=== PATIENT | female | born 1980 | race Caucasian/White ===

== ENCOUNTER 2016-09-19 12:54 | Outpatient (CLI) | payer OTHER | END 2016-09-19 12:55 | disposition home or self-care (01) | LOC: NC 12:54 | PROVIDERS: ATTEND Obstetrics & Gynecology | DX: O24.410 Gestational diabetes mellitus in pregnancy, diet controlled (principal); Z71.3 Dietary counseling and surveillance ==

== ENCOUNTER 2016-10-30 11:49 | Inpatient (IN) | payer OTHER ==
[2016-10-30 12:17] VITALS: BMI 38.7
[2016-10-30] MEDS ORDERED: CEFAZOLIN SODIUM 2 GRAM DUPLEX 2 G in Premix (D5W) 50 ml 1 EACH IV PRN (12:25)
[2016-10-30] MEDS ORDERED: IV START KIT ONE (12:37)
[2016-10-30 13:39] LABS: ABSOLUTE NEUTROPHIL COUNT 5.9 K/mm3 (1.8-7.7); BASO % 0.5 % (0.2-1.0); EOS % 0.1 % (0.9-2.9); HEMATOCRIT 31.9 % (37.0-47.0); IMM NEUT% 0.4 % (0-1); LYMPH # 1.6 (1.0-4.8); LYMPH % 19.5 % (15-45); MEAN CORPUSCULAR HEMOGLOBIN 25.4 pg (27.0-31.0); MEAN CORPUSCULAR HGB CONC 31.3 g/dl (33.0-37.0); MEAN PLATELET VOLUME 11.7 fl (7.4-10.4); MONO # 0.5 (0.0-0.8); MONO % 5.8 % (4-12); NEUT % 73.7 % (43-75); PLATELET COUNT 288 K/mm3 (130-400); RED CELL DISTRIBUTION WIDTH 15.9 % (11.5-14.5)
[2016-10-30 13:42] LABS: AMPHETAMINES/METHAMPHETAMINES NEGATIVE (NEGATIVE); COCAINE NEGATIVE (NEGATIVE); MARIJUANA NEGATIVE (NEGATIVE); METHADONE NEGATIVE (NEGATIVE); OPIATES NEGATIVE (NEGATIVE); TRICYCLIC ANTIDEPRESSANTS NEGATIVE (NEGATIVE)
[2016-10-30 13:50] LABS: ALB/GLOB RATIO 0.9 (>1.0); CALCIUM 8.8 mg/dL (8.6-10.3); URIC ACID 5.6 mg/dL (2.3-7.6)
[2016-10-30 13:53] LABS: CREATININE,RANDOM URINE 43 mg/dL
--- NOTE | 2016-10-30 16:02 | PDOC1 ---
- HPI 36 year old at 38+2w gestational age by LMP, confirmed with 12-week ultrasound who desires repeat LTCS for means of delivery due to history of prior LTCS and also BTL for permanent sterilization. Pt presents for routine visit today and was noted to have BP 140/80, 148/90, and 3+ protein in the office. Pt also c/o having seeing spots. Pt was initially scheduled for repeat c/s + BTL on 11/06/16. * previous c/s x 3; desires repeat c/s + BTL * h/o SGA - growth u/s this have been adequate growth * GDMa1; well controlled with diet, last hgba1c = 5.7. * Rh-negative, had rhogam at 26w * pos NTD screen (1:275) * desires BTL SOCIAL HISTORY: had pos MJ screen early ; today's screen is negative Allergies/Adverse Reactions: Allergies No Known Allergies Allergy (Verified 10/30/16 11:56) - Labs & Studies LABS: A-NEG ab negative rubella immune RPR-[Negative], HbsAg-[Negative], HIV-[Negative] GC/Chlamydia-[Negative], UA-[Negative], Quad/Integrated Screen-elevated NTD risk 1:275 elevated 1hr and 3hr testing - Hgba1c = 5.7 lefty 11/11/16, c/w 12, 19, and 24w u/s - Physical Exam General: Afebrile, No Acute Distress Psych/Mental Status: Mood/Affect Appropriate Lungs: Clear to Auscultation Bilaterally Cardiovascular: Regular Rate and Rhythm Abdomen: Other (efw 3500g) Genitourinary: Normal Female Genitalia Extremities: Edema (1+ bilaterally) Deep Tendon Reflexes: Bicep (L): 1+ (Slightly diminished), Bicep (R): 1+ ( Slightly diminished), Patellar (L): 1+ (Slightly diminished), Patellar (R): 1+ ( Slightly diminished) - Assessment & Plan 36 y/o at 38+2 by [LMP] who will present for repeat LTCS and BTL due to preeclampsia Discussed with patient the risks of including infection, bleeding , damage to underlying structures including bowel, bladder, uterus, tubes, ovaries , baby, and ureter, as well as will have a scar and can have persistent pain and numbness at incision site. The patient agrees to proceed with LTCS and BTL. Labs are reviewed which show elevated urine p/c ratio at 1279.
[2016-10-30] MEDS: LACTATED RINGERS 1,000 ML IV SCH ×3 (19:10→22:20)
[2016-10-30] MEDS ORDERED: CEFAZOLIN SODIUM 2 GRAM DUPLEX 50 ML IV ONE (19:22)
[2016-10-30] MEDS ORDERED: SPINAL PROCEDURAL TRAY 1 EACH ONE (19:32)
[2016-10-30] MEDS ORDERED: ONDANSETRON 4 MG/2ML 2 ML VIAL ONE (19:33)
[2016-10-30] MEDS ORDERED: OXYTOCIN 10 UNITS/ML VIAL ONE (19:33)
[2016-10-30] MEDS ORDERED: MORPHINE SULFATE (DURAMORPH) 1 MG/ML 10ML AMP ONE (19:34)
[2016-10-30] MEDS ORDERED: EPHEDRINE SULFATE UD SYR 25 MG 25 MG/5 ML SYRINGE IV ONE (20:47)
[2016-10-30] MEDS ORDERED: HYDROMORPHONE HCL 1 MG/ML SYRINGE IV PRN ×2 (20:48→22:04)
[2016-10-30] MEDS ORDERED: DIPHENHYDRAMINE HCL 50 MG/1 ML VIAL IV PRN ×2 (20:48→22:20)
[2016-10-30] MEDS ORDERED: EPHEDRINE SULFATE 50 MG/ML 1ML VIAL IV PRN ×2 (20:48→22:04)
[2016-10-30] MEDS ORDERED: NALOXONE HCL 0.4 MG/ML VIAL IV PRN ×2 (20:48→22:04)
[2016-10-30] MEDS ORDERED: ONDANSETRON 4 MG/2ML 2 ML VIAL IV PRN ×3 (20:48→22:20)
[2016-10-30] MEDS ORDERED: PROMETHAZINE HCL 25 MG/ML VIAL IM PRN ×2 (20:48→22:04)
[2016-10-30] MEDS ORDERED: HYDROMORPHONE HCL 2 MG/ML SYRINGE IV PRN ×2 (20:48→22:04)
[2016-10-30] MEDS ORDERED: BUPIVACAINE 0.75% SPINAL AMPUL 2 ML ONE (21:49)
[2016-10-30] MEDS ORDERED: KETOROLAC TROMETHAMINE 30 MG/ML 1 ML VIAL ONE (21:49)
[2016-10-30] MEDS ORDERED: LACTATED RINGERS 1,000 ML ONE (22:16)
[2016-10-30] MEDS ORDERED: OXYCODONE/ACETAMINOPHEN 5/325 MG TABLET PO PRN (22:20)
[2016-10-30] MEDS ORDERED: LANOLIN 50 APPLIC/7G TUBE TP PRN (22:20)
[2016-10-30] MEDS ORDERED: DIPHENHYDRAMINE HCL 25 MG CAPSULE PO PRN (22:20)
[2016-10-30] MEDS ORDERED: KETOROLAC TROMETHAMINE 30 MG/ML 1 ML VIAL IV PRN (22:20)
[2016-10-30] MEDS: DIPHENHYDRAMINE HCL 50 MG/1 ML VIAL IV PRN (22:49)
[2016-10-31] MEDS ORDERED: MAGNESIUM SULFATE 4 G/100 ML 4 G in PREMIX BAG 1 EACH IV ONE (00:11)
[2016-10-31] MEDS ORDERED: MAGNESIUM SULFATE 4 G/100 ML 100 ML IV ONE (00:21)
[2016-10-31] MEDS ORDERED: PUMP TUBING ONE ×2 (00:24→00:32)
[2016-10-31] MEDS: LACTATED RINGERS 1,000 ML IV SCH ×5 (00:45→20:58)
[2016-10-31] MEDS ORDERED: LACTATED RINGERS 1,000 ML ONE (01:04)
[2016-10-31] MEDS: MAGNESIUM SULFATE 20 G/500 ML 500 ML IV SCH ×3 (01:24→23:06)
[2016-10-31] MEDS: KETOROLAC TROMETHAMINE 30 MG/ML 1 ML VIAL IV SCH ×7 (05:01→18:04)
[2016-10-31] MEDS ORDERED: RHOGAM 300 MCG SYRINGE IV ONE (06:06)
--- NOTE | 2016-10-31 06:24 | OP ---
Dorinda Vail [id number] DATE OF PROCEDURE: 10/30/2016 PREOPERATIVE DIAGNOSES: 1. A 38 week plus 2 day . 2. Previous section times three. 3. Desires repeat section. 4. Desires permanent sterilization. 5. Preeclampsia. POSTOPERATIVE DIAGNOSES: 1. A 38 week plus 2 day . 2. Previous section times three. 3. Desires repeat section. 4. Desires permanent sterilization. 5. Preeclampsia. PROCEDURE: Repeat low transverse section with bilateral tubal ligation. SURGEON: Heriberto Cavazos MD. PHYSICIAN EXECUTIVE: Phu Calero CNM ANESTHESIA: Spinal. ESTIMATED BLOOD LOSS: 600 mL. COMPLICATIONS: None. OPERATIVE FINDINGS: Include a live born baby male with 's of 8 and 10 in cephalic presentation with clear amniotic fluid. Both ovaries and tubes appear normal bilaterally. There was moderate lower segment adhesions. OPERATIVE COURSE: This patient was taken to the operating room and placed under spinal anesthesia. The patient was then prepped and draped in a sterile fashion. Adequate anesthesia was confirmed. A pfannenstiel incision was made and taken down to the level of the fascia. The fascia was incised tranversely dissected bilaterally off of the underlying rectus muscle. The rectus muscle was in the midline and the peritoneal cavity was entered bluntly and stretched. An Jose retractor was then placed and a transverse incision was made on the lower uterine segment and stretched. The baby was then delivered and bulb suctioned. There was nuchal cord x1 which was reduced. After a brief delay the cord was clamped and cut and baby was taken to the warmer for the nursing staff. The placenta was then extracted manually and the uterus was cleared of all clots and membranes. The incision was then closed with a single layer of 0 Vicryl in a continuous fashion and hemostasis was created with a figure of eight suture of 0 Vicryl suture. There was good hemostasis observed. The right tube was then grasped with Roxobel clamp and then a window was made in mesosalpinx. The proximal and distal aspect of the tube was then tied with a 2-0 Silk suture and the middle segment was then excised. The open aspect of the tube was then cauterized. The left tube was then grasped with Ni clamp a window was made in the mesosalpinx. The proximal and distal aspect of the tube was then tied with 2-0 Silk suture and the middle segment was then excised. The open aspect of the tube was then cauterized. There was good hemostasis observed. The rectus muscles were reapproximated with 3-0 Vicryl suture. The fascia was then closed with 0 Vicryl in a continuous fashion from both edges. The subcutaneous space was then closed with 2-0 Chromic suture and the skin was then closed with subcutaneous suture of 3-0 Monocryl. The patient was then recovered from anesthesia and taken to the recovery room in stable condition. JOB: [id number]
[2016-10-31 06:42] LABS: HEMATOCRIT 27.1 % (37.0-47.0); HEMOGLOBIN 8.6 gm/l (12.0-16.0); MEAN CELL VOLUME 79.7 fl (81.0-99.0); MEAN CORPUSCULAR HEMOGLOBIN 25.3 pg (27.0-31.0); MEAN CORPUSCULAR HGB CONC 31.7 g/dl (33.0-37.0); RED CELL DISTRIBUTION WIDTH 15.7 % (11.5-14.5)
--- NOTE | 2016-10-31 07:28 | PDOC44 ---
- Subjective Day: 1 Reports Pain Tolerable, Reports Other (BP elevated last night to 160/90; magnesium was started. BP elevated overnight, this AM 150's/90's.) - Objective Temp Pulse Resp BP Pulse Ox 98.1 F 100 18 128/74 99 10/31/16 00:42 10/31/16 02:20 10/31/16 02:20 10/31/16 02:20 10/31/16 02:20 Lab Results 10/31/16 10/30/16 06:10 12:30 WBC 9.6 8.1 RBC 3.40 L 3.94 L Hgb 8.6 L 10.0 L Hct 27.1 L 31.9 L Plt Count 273 288 Creatinine 0.6 Uric Acid 5.6 AST 12 L ALT 6 L Lactate Dehydrogenase 152 10/31/16 10/30/16 06:10 12:30 MCV 79.7 L MCH 25.3 L 25.4 L MCHC 31.7 L 31.3 L RDW 15.7 H 15.9 H Eosinophils % 0.1 L Sodium 134 L Estimated GFR 114 H Albumin 3.0 L Albumin/Globulin Ratio 0.9 L Current Medications Generic Name Dose Route Start Last Admin Trade Name Freq PRN Reason Stop Dose Admin Acetaminophen/Hydrocodone Bitart 1 - 2 tab 10/31/16 00:05 [place] 5/325 PO Q4H PRN Pain Diphenhydramine HCl 25 - 50 mg 10/30/16 22:04 10/30/16 22:49 Benadryl IV 10/31/16 22:03 25 mg Q4H PRN Administration Itching Diphenhydramine HCl 25 - 50 mg 10/30/16 20:48 Benadryl IV Q4H PRN Itching Diphenhydramine HCl 25 - 50 mg 10/30/16 22:20 Benadryl PO Q6H PRN Itching (Mild/Moderate) Diphenhydramine HCl 25 - 50 mg 10/30/16 22:20 Benadryl IV Q6H PRN Itching (Severe) Docusate Sodium 100 mg 10/31/16 09:00 Colace PO BID WARREN Emollient Ointment 1 applic 10/30/16 22:20 [id number] TP PRN PRN sore nipples Ephedrine Sulfate 5 - 10 mg 10/30/16 22:04 Ephedrine Sulfate IV 10/31/16 22:03 Q5M PRN Ephedrine Sulfate 5 - 10 mg 10/30/16 20:48 Ephedrine Sulfate IV Q5M PRN Hydromorphone HCl 0.5 - 2 mg 10/30/16 22:04 Dilaudid IV 10/31/16 22:03 Q1H PRN PRN break through pain Hydromorphone HCl 0.5 - 2 mg 10/30/16 22:04 Dilaudid IV 10/31/16 22:03 Q1H PRN Pain Hydromorphone HCl 0.5 - 2 mg 10/30/16 20:48 Dilaudid IV 11/03/16 20:47 Q1H PRN Pain (Breakthrough) Hydromorphone HCl 0.5 - 2 mg 10/30/16 20:48 Dilaudid IV Q1H PRN Pain Lactated Ringer's 1,000 mls @ 125 mls/hr 10/30/16 22:20 10/30/16 22:20 Lactated Ringers IV 125 mls/hr .Q8H WARREN Administration Lactated Ringer's 1,000 mls @ 100 mls/hr 10/31/16 00:15 10/31/16 00:45 Lactated Ringers IV 100 mls/hr .Q10H WARREN Administration Magnesium Sulfate 500 mls @ 50 mls/hr 10/31/16 00:15 10/31/16 01:24 Magnesium Sulfate IV 50 mls/hr Q10H WARREN Administration 2 G/HR Ibuprofen 800 mg 10/30/16 22:20 Motrin PO Q8H PRN Pain Ketorolac Tromethamine 30 mg 10/30/16 22:04 10/31/16 05:01 Toradol IV 10/31/16 22:03 30 mg Q6H WARREN Administration Ketorolac Tromethamine 30 mg 10/30/16 20:48 Toradol IV 11/04/16 20:47 Q6H WARREN Ketorolac Tromethamine 30 mg 10/30/16 22:20 Toradol IV Q6H PRN Pain (Mild/Moderate) Labetalol HCl 200 mg 10/31/16 09:00 Trandate PO BID WARREN Multivi/Iron Carb/Fe Sulf/FA/Prenat 1 tab 10/31/16 09:00 Plus PO DAILY WARREN Naloxone HCl 0.2 - 0.4 mg 10/30/16 22:04 Narcan IV 10/31/16 22:03 Q5M PRN Naloxone HCl 0.2 - 0.4 mg 10/30/16 20:48 Narcan IV Q5M PRN Ondansetron HCl 4 mg 10/30/16 22:04 Zofran IV 10/31/16 22:03 Q6H PRN Nausea/Vomiting Ondansetron HCl 4 mg 10/30/16 20:48 Zofran IV Q6H PRN Nausea/Vomiting Ondansetron HCl 4 mg 10/30/16 22:20 Zofran IV Q6H PRN Nausea/Vomiting Promethazine HCl 6.25 - 12.5 mg 10/30/16 22:04 Phenergan IM 10/31/16 22:03 Q4H PRN Nausea/Vomiting Promethazine HCl 6.25 - 12.5 mg 10/30/16 20:48 Phenergan IM Q4H PRN Nausea/Vomiting Sodium Chloride 10 ml 10/30/16 22:20 10/31/16 05:01 Normal Saline 10ml Flush IV 10 ml PRN PRN Administration IV Flush - Physical Exam General: Afebrile, No Acute Distress Fundus: Firm, At Umbilicus Abdomen: Tenderness (appropriately tender), No Distention 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 start labetalol 200mg bid.)
[2016-10-31] MEDS: LABETALOL HCL 200 MG TABLET PO SCH ×2 (10:30→21:00)
[2016-10-31] MEDS: DOCUSATE SODIUM 100 MG CAPSULE PO SCH ×2 (12:33→20:59)
[2016-10-31] MEDS: PRENATAL VIT/FE FUMARATE/FA 1 TABLET PO SCH (13:54)
[2016-10-31] MEDS: DIPHENHYDRAMINE HCL 50 MG/1 ML VIAL IV PRN (13:54)
[2016-10-31] MEDS: IBUPROFEN 800 MG TABLET PO PRN (23:10)
[2016-11-01] MEDS: HYDROCODONE/ACETAMINOPHEN 5/325MG TABLET PO PRN ×5 (00:12→19:42)
[2016-11-01] MEDS: KETOROLAC TROMETHAMINE 30 MG/ML 1 ML VIAL IV SCH ×4 (02:04→17:01)
[2016-11-01] MEDS: LACTATED RINGERS 1,000 ML IV SCH ×5 (02:04→17:02)
[2016-11-01] MEDS: IBUPROFEN 800 MG TABLET PO PRN ×2 (07:04→15:12)
[2016-11-01] MEDS: DOCUSATE SODIUM 100 MG CAPSULE PO SCH ×2 (09:17→21:07)
[2016-11-01] MEDS: PRENATAL VIT/FE FUMARATE/FA 1 TABLET PO SCH ×2 (09:17→09:19)
[2016-11-01] MEDS: LABETALOL HCL 200 MG TABLET PO SCH ×2 (09:17→21:07)
--- NOTE | 2016-11-01 09:50 | PDOC44 ---
- Subjective Day: 2 Reports Flatus, Reports Pain Tolerable, Reports , Reports Lochia Light - Objective Temp Pulse Resp BP Pulse Ox 97.7 F 90 20 140/85 99 11/01/16 08:13 11/01/16 07:12 11/01/16 07:12 11/01/16 08:13 11/01/16 02:30 Current Medications Generic Name Dose Route Start Last Admin Trade Name Freq PRN Reason Stop Dose Admin Acetaminophen/Hydrocodone Bitart 1 - 2 tab 10/31/16 00:05 11/01/16 07:04 [place] 5/325 PO 2 tab Q4H PRN Administration Pain Diphenhydramine HCl 25 - 50 mg 10/30/16 20:48 Benadryl IV Q4H PRN Itching Diphenhydramine HCl 25 - 50 mg 10/30/16 22:20 Benadryl PO Q6H PRN Itching (Mild/Moderate) Diphenhydramine HCl 25 - 50 mg 10/30/16 22:20 Benadryl IV Q6H PRN Itching (Severe) Docusate Sodium 100 mg 10/31/16 09:00 11/01/16 09:17 Colace PO 100 mg BID WARREN Administration Emollient Ointment 1 applic 10/30/16 22:20 [id number] TP PRN PRN sore nipples Ephedrine Sulfate 5 - 10 mg 10/30/16 20:48 Ephedrine Sulfate IV Q5M PRN Hydromorphone HCl 0.5 - 2 mg 10/30/16 20:48 Dilaudid IV 11/03/16 20:47 Q1H PRN Pain (Breakthrough) Hydromorphone HCl 0.5 - 2 mg 10/30/16 20:48 Dilaudid IV Q1H PRN Pain Lactated Ringer's 1,000 mls @ 125 mls/hr 10/30/16 22:20 11/01/16 08:28 Lactated Ringers IV Not Given .Q8H WARREN Lactated Ringer's 1,000 mls @ 100 mls/hr 10/31/16 00:15 11/01/16 08:28 Lactated Ringers IV Not Given .Q10H WARREN Ibuprofen 800 mg 10/30/16 22:20 11/01/16 07:04 Motrin PO 800 mg Q8H PRN Administration Pain Ketorolac Tromethamine 30 mg 10/30/16 20:48 11/01/16 08:28 Toradol IV 11/04/16 20:47 Not Given Q6H WARREN Ketorolac Tromethamine 30 mg 10/30/16 22:20 Toradol IV Q6H PRN Pain (Mild/Moderate) Labetalol HCl 200 mg 10/31/16 09:00 11/01/16 09:17 Trandate PO 200 mg BID WARREN Administration Multivi/Iron Carb/Fe Sulf/FA/Prenat 1 tab 10/31/16 09:00 11/01/16 09:19 Plus PO Not Given DAILY WARREN Naloxone HCl 0.2 - 0.4 mg 10/30/16 20:48 Narcan IV Q5M PRN Ondansetron HCl 4 mg 10/30/16 20:48 Zofran IV Q6H PRN Nausea/Vomiting Ondansetron HCl 4 mg 10/30/16 22:20 Zofran IV Q6H PRN Nausea/Vomiting Promethazine HCl 6.25 - 12.5 mg 10/30/16 20:48 Phenergan IM Q4H PRN Nausea/Vomiting Sodium Chloride 10 ml 10/30/16 22:20 10/31/16 05:01 Normal Saline 10ml Flush IV 10 ml PRN PRN Administration IV Flush Sodium Chloride 10 ml 10/31/16 09:00 11/01/16 09:17 Normal Saline 10ml Flush IV 10 ml Q8HR WARREN Administration - Physical Exam General: Afebrile Psych/Mental Status: Mood/Affect Appropriate Fundus: Firm, At Umbilicus Abdomen: Normal Bowel Sounds, No Tenderness, No Distention 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 BP controlled on labetalol, was 140/80-90 this AM. Cont labetalol and will monitor BP next 24hrs. Pt feels well. Likely discharge tomorrow.)
[2016-11-02] MEDS: IBUPROFEN 800 MG TABLET PO PRN ×3 (00:35→16:28)
[2016-11-02] MEDS: HYDROCODONE/ACETAMINOPHEN 5/325MG TABLET PO PRN (02:33)
[2016-11-02] MEDS ORDERED: SERTRALINE HCL 50 MG TABLET ONE (03:36)
[2016-11-02] MEDS ORDERED: NIFEDIPINE 30 MG TAB.XL PO ONE (03:45)
[2016-11-02] MEDS: NIFEDIPINE 30 MG TAB.XL PO SCH ×2 (04:03→10:29)
[2016-11-02] MEDS: SERTRALINE HCL 50 MG TABLET PO SCH ×2 (04:03→10:26)
[2016-11-02] MEDS: KETOROLAC TROMETHAMINE 30 MG/ML 1 ML VIAL IV SCH ×4 (05:05→19:04)
[2016-11-02] MEDS: LACTATED RINGERS 1,000 ML IV SCH ×5 (05:08→19:04)
[2016-11-02] MEDS ORDERED: NIFEDIPINE 10 MG CAPSULE PO ONE (06:28)
[2016-11-02] MEDS ORDERED: BISACODYL 5 MG TABLET.EC PO PRN (07:35)
--- NOTE | 2016-11-02 07:35 | PDOC44 ---
- Subjective Day: 3 (constipated) Reports Flatus, Reports Pain Tolerable, Reports , Reports Lochia Light, Reports Tolerating Regular Diet, Denies Nausea, Denies Vomiting, Denies Fever - Objective Temp Pulse Resp BP Pulse Ox 97.8 F 81 16 188/92 99 11/02/16 02:15 11/02/16 02:15 11/02/16 02:15 11/02/16 06:10 11/01/16 02:30 Current Medications Generic Name Dose Route Start Last Admin Trade Name Freq PRN Reason Stop Dose Admin Acetaminophen/Hydrocodone Bitart 1 - 2 tab 10/31/16 00:05 11/02/16 02:33 [place] 5/325 PO 1 tab Q4H PRN Administration Pain Diphenhydramine HCl 25 - 50 mg 10/30/16 20:48 Benadryl IV Q4H PRN Itching Diphenhydramine HCl 25 - 50 mg 10/30/16 22:20 Benadryl PO Q6H PRN Itching (Mild/Moderate) Diphenhydramine HCl 25 - 50 mg 10/30/16 22:20 Benadryl IV Q6H PRN Itching (Severe) Docusate Sodium 100 mg 10/31/16 09:00 11/01/16 21:07 Colace PO 100 mg BID WARREN Administration Emollient Ointment 1 applic 10/30/16 22:20 [id number] TP PRN PRN sore nipples Ephedrine Sulfate 5 - 10 mg 10/30/16 20:48 Ephedrine Sulfate IV Q5M PRN Hydromorphone HCl 0.5 - 2 mg 10/30/16 20:48 Dilaudid IV 11/03/16 20:47 Q1H PRN Pain (Breakthrough) Hydromorphone HCl 0.5 - 2 mg 10/30/16 20:48 Dilaudid IV Q1H PRN Pain Lactated Ringer's 1,000 mls @ 125 mls/hr 10/30/16 22:20 11/02/16 05:08 Lactated Ringers IV Not Given .Q8H WARREN Lactated Ringer's 1,000 mls @ 100 mls/hr 10/31/16 00:15 11/01/16 17:02 Lactated Ringers IV Not Given .Q10H WARREN Ibuprofen 800 mg 10/30/16 22:20 11/02/16 00:35 Motrin PO 800 mg Q8H PRN Administration Pain Ketorolac Tromethamine 30 mg 10/30/16 20:48 11/02/16 05:05 Toradol IV 11/04/16 20:47 Not Given Q6H WARREN Ketorolac Tromethamine 30 mg 10/30/16 22:20 Toradol IV Q6H PRN Pain (Mild/Moderate) Labetalol HCl 200 mg 10/31/16 09:00 11/01/16 21:07 Trandate PO 200 mg BID [facility] Administration Multivi/Iron Carb/Fe Sulf/FA/Prenat 1 tab 10/31/16 09:00 11/01/16 09:19 Plus PO Not Given DAILY [facility] Naloxone HCl 0.2 - 0.4 mg 10/30/16 20:48 Narcan IV Q5M PRN Nifedipine 30 mg 11/02/16 09:00 11/02/16 04:03 Procardia Xl PO 30 mg DAILY [facility] Administration Ondansetron HCl 4 mg 10/30/16 20:48 Zofran IV Q6H PRN Nausea/Vomiting Ondansetron HCl 4 mg 10/30/16 22:20 Zofran IV Q6H PRN Nausea/Vomiting Promethazine HCl 6.25 - 12.5 mg 10/30/16 20:48 Phenergan IM Q4H PRN Nausea/Vomiting Sertraline HCl 50 mg 11/02/16 09:00 11/02/16 04:03 Zoloft PO 50 mg DAILY [facility] Administration Sodium Chloride 10 ml 10/30/16 22:20 10/31/16 05:01 Normal Saline 10ml Flush IV 10 ml PRN PRN Administration IV Flush Sodium Chloride 10 ml 10/31/16 09:00 11/02/16 02:51 Normal Saline 10ml Flush IV 10 ml Q8HR WARREN Administration - Physical Exam General: Afebrile, No Acute Distress Psych/Mental Status: Mood/Affect Appropriate, Judgment/Insight Intact, Bonding Well Lungs: Clear to Auscultation Bilaterally, Normal Air Movement Breast: Soft, Skin intact, Nipples Intact, No Tenderness, No Erythema, No Engorged Fundus: Firm, Midline, Below Umbilicus, Other (nontender) Abdomen: Normal Bowel Sounds, Obese, Other (passed flatus, had 'small' bowel movement, but straining with bowel movement), No Tenderness, No Distention Genitourinary: Other (voiding without difficulty) Extremities: Other (+/+ pedal edema), No Tenderness Deep Tendon Reflexes: Patellar (L): 3+ (More brisk), Patellar (R): 3+ (More brisk) 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
[2016-11-02] MEDS: DOCUSATE SODIUM 100 MG CAPSULE PO SCH (08:39)
[2016-11-02] MEDS: LABETALOL HCL 200 MG TABLET PO SCH ×3 (08:56→20:29)
[2016-11-02] MEDS: PRENATAL VIT/FE FUMARATE/FA 1 TABLET PO SCH (10:27)
--- NOTE | 2016-11-02 14:28 | SURGPATH ---
[facility] [address] [place] [id number] Patient Name: ANTHONY HEADLEY MR#: [id number] : 1980 Gender: F Specimen #: [id number] Collected: 10/30/2016 Received: 11/01/2016 Reported: 11/02/2016 Submitting Phys: MAX MORAN Copy To Phys: [facility] Clinical History / Pre-Operative Diagnosis: Elective sterilization Specimen Source / Surgical Procedure Performed: Segment of right fallopian tube (with stitch), segment of left fallopian tube- bilateral tubal ligation Interpretation: FALLOPIAN TUBES, RIGHT AND LEFT, PARTIAL SALPINGECTOMY: - FULL CROSS SECTION OF BILATERAL FALLOPIAN TUBE SEGMENTS SHOWING NO DIAGNOSTIC ABNORMALITIES. Electronically Signed Out Ismael Moran M.D., Ph.D. Gross Description: The specimen is received in a formalin filled container labeled with the patient's name and "segments of right and left fallopian tubes ". Two cylindrical segments of roman tissue are 1.0 x 0.5 cm and 1.5 x 0.5 cm. The shorter segment has an attached stitch and is inked black. A safety representative cross-section of each is submitted in one cassette. Adama Padilla, PKatherineA. Microscopic Description: Full cross section of bilateral fallopian tube segments microscopically examined. 1: 21748(2 Z30.2
[2016-11-02] MEDS ORDERED: ZOLPIDEM TARTRATE 5 MG TABLET PO PRN (19:47)
[2016-11-03] MEDS: IBUPROFEN 800 MG TABLET PO PRN ×2 (00:25→08:16)
[2016-11-03] MEDS: KETOROLAC TROMETHAMINE 30 MG/ML 1 ML VIAL IV SCH ×2 (00:29→03:43)
[2016-11-03] MEDS: DOCUSATE SODIUM 100 MG CAPSULE PO SCH ×2 (00:29→08:16)
[2016-11-03] MEDS: LACTATED RINGERS 1,000 ML IV SCH ×3 (00:29→06:57)
[2016-11-03] MEDS: LABETALOL HCL 200 MG TABLET PO SCH (08:16)
[2016-11-03] MEDS: PRENATAL VIT/FE FUMARATE/FA 1 TABLET PO SCH (08:16)
[2016-11-03] MEDS: NIFEDIPINE 30 MG TAB.XL PO SCH (08:42)
--- NOTE | 2016-11-03 10:04 | PDOC39B ---
Hospital Course: ADMIT DATE: 10/30/16 DISCHARGE DATE: 11/03/16 ADMISSION DIAGNOSES: intrauterine at 38.2 weeks, preeclampsia, multiparity, previous cesarian section PROCEDURES: repeat lower segment cesarian section, bilateral tubal ligation HISTORY OF PRESENT ILLNESS: 36 year old G5 T3 L3 at 38 weeks 2 days presenting with elevated blood pressure and scotoma in office, sent for repeat c section and tubal ligation HOSPITAL COURSE: The patient had elevated blood pressure with hyperreflexia requiring magnesium sulfate, labetolol and procadia rx. By day of discharge the patient is ambulating, eating, voiding, and passing flatus without difficulty. Pain is controlled and lochia is appropriate. She is [] - Physical Exam Vital Signs: Temp Pulse Resp BP Pulse Ox 98.3 F 100 16 154/86 99 11/03/16 08:00 11/03/16 08:00 11/03/16 08:00 11/03/16 08:00 11/01/16 02:30 General: Afebrile, No Acute Distress Psych/Mental Status: Mood/Affect Appropriate, Judgment/Insight Intact, Bonding Well Lungs: Clear to Auscultation Bilaterally, Normal Air Movement Breast: Soft, Skin intact, Nipples Intact, No Tenderness, No Erythema, No Engorged Fundus: Firm, Midline, Below Umbilicus, Other (nontender) Abdomen: Normal Bowel Sounds, Other (passed flatus, had bowel movement), No Tenderness, No Distention Genitourinary: Other (voiding without difficulty) Lochia: Light Extremities: No Tenderness Deep Tendon Reflexes: Patellar (L): 3+ (More brisk), Patellar (R): 3+ (More brisk) Wound: Dressing in Place, Dressing Clean/Dry/Intact, Well Approximated, No Drainage, No Erythema, No Rash, No Edema - Discharge Diagnosis (1) Multiparity Status: Acute (2) Postoperative anemia due to acute blood loss Status: Acute (3) Severe pre-eclampsia Status: Acute (4) 38 weeks gestation of Status: Acute (5) Previous delivery affecting , delivered Status: Acute - Discharge Plan Condition: Stable Disposition: Home Additional Instructions: office visit with dr gonzalez 11/06/16. call if any headaches, spot before eyes, abdominal pain or fever. take prescribed medications as written. nothing in vagina x [address] weeks, may drive in one week. call md if blood pressure greater than 160/100. Prescriptions: Ibuprofen [Motrin] 800 mg PO Q8H PRN #30 tablet PRN Reason: Pain FERROUS SULFATE (65 Fe) [IRON FERROUS SULFATE 325 MG TABLET (SHF)] 325 mg PO DAILY #30 tab Labetalol HCl [Trandate] 200 mg PO BID #20 tab
[2016-11-03 10:07] VITALS: BP 156/82
--- NOTE | 2016-11-03 10:12 | PDOC36 ---
Provider Note Note: additional discharge med: norco 5/325 mg po every 6 huors as needed #20 wriiten rx.
== END 2016-11-03 11:15 | disposition home or self-care (01) | DRG 766 ==
LOC: FBCOUT 11:49 → FBC 11:53 → FBCOUT 12:23 → FBC 12:24
PROVIDERS: ADMIT Obstetrics & Gynecology; ATTEND Obstetrics & Gynecology
PROC: 10D00Z1 Extraction of Products of Conception, Low, Open Approach (ICD-10-PCS; principal; 2016-10-30)
PROC: 0UL70ZZ Occlusion of Bilateral Fallopian Tubes, Open Approach (ICD-10-PCS; 2016-10-30)
DX: O34.211 Maternal care for low transverse scar from previous cesarean delivery (principal); O24.420 Gestational diabetes mellitus in childbirth, diet controlled; Z37.0 Single live birth; O09.43 Supervision of pregnancy with grand multiparity, third trimester; O14.14 Severe pre-eclampsia complicating childbirth; Z3A.38 38 weeks gestation of pregnancy; Z30.2 Encounter for sterilization

== ENCOUNTER 2016-11-04 12:23 | Emergency (ER) | payer OTHER ==
[2016-11-04] MEDS ORDERED: LACTATED RINGERS 1,000 ML ONE (13:03)
[2016-11-04] MEDS ORDERED: HYDRALAZINE HCL 20 MG/1 ML VIAL ONE (13:03)
[2016-11-04 13:33] LABS: ABSOLUTE NEUTROPHIL COUNT 5.4 K/mm3 (1.8-7.7); BASO % 0.4 % (0.2-1.0); EOS # 0.1 (0.0-0.5); EOS % 0.7 % (0.9-2.9); HEMATOCRIT 32.8 % (37.0-47.0); HEMOGLOBIN 10.1 gm/l (12.0-16.0); IMM NEUT% 0.6 % (0-1); LYMPH # 1.2 (1.0-4.8); LYMPH % 17.3 % (15-45); MEAN CELL VOLUME 81.8 fl (81.0-99.0); MEAN CORPUSCULAR HEMOGLOBIN 25.2 pg (27.0-31.0); MEAN CORPUSCULAR HGB CONC 30.8 g/dl (33.0-37.0); MEAN PLATELET VOLUME 10.8 fl (7.4-10.4); MONO # 0.4 (0.0-0.8); MONO % 5.5 % (4-12); NEUT % 75.5 % (43-75); PLATELET COUNT 414 K/mm3 (130-400); RED CELL DISTRIBUTION WIDTH 16.7 % (11.5-14.5); SPECIFIC GRAVITY 1.015 (1.001-1.030); URINE BILIRUBIN NEGATIVE (NEGATIVE); URINE BLOOD 3+ (NEGATIVE); URINE GLUCOSE (UA) NEGATIVE (NEGATIVE); URINE LEUKOCYTE ESTERASE NEGATIVE (NEGATIVE); URINE NITRITE NEGATIVE (NEGATIVE); URINE PROTEIN TRACE (NEGATIVE); URINE UROBILINOGEN NORMAL (0-1 mg/dl)
[2016-11-04 13:38] LABS: URINE APPEARANCE CLEAR; URINE COLOR YELLOW
[2016-11-04 13:42] LABS: URINE RBC 0-1 /hpf
[2016-11-04 13:43] LABS: URINE BACTERIA RARE; URINE EPITHELIAL CELLS 0-1 /hpf; URINE WBC NEG /hpf
[2016-11-04 13:48] LABS: ALB/GLOB RATIO 0.9 (>1.0); ALBUMIN 3.4 gm/dL (3.5-5.7); CALCIUM 9.2 mg/dL (8.6-10.3)
== END 2016-11-04 14:44 | disposition home or self-care (01) ==
LOC: ED 12:23
DX: O14.95 Unspecified pre-eclampsia, complicating the puerperium (principal)
CPT/HCPCS: 85025; 80053; 81001; 99283 ×2; 96374; 96361; J0360; J7120